=== PATIENT | female | born 1985 | race Caucasian/White ===

== ENCOUNTER 2019-07-21 16:46 | Emergency (ER) | payer MEDICAID ==
[~2019-07-21] VITALS: Ht 160 cm; Wt 63.3 kg
[~2019-07-21 16:46] MED LIST: DEXA4TAB PO; NICO-487 TD; PRED20TA PO
--- NOTE | 2019-07-21 17:08 | NUR ---
PT CAME IN CO OF SOB, CP, AND FEELING LIGHT HEADED. "I WAS GETTING LIGHT HEADED AND DIZZY AT WORK. ALSO WAS GETTING CP. SOMETIMES WHEN I GO ON A HIKE MY APPLE WATCH SAYS MY HR WTILL BE AT 170". EKG COMPELTED. PT RESTING IN GURNEY. HOOKED UP TO DEVOPS CONSULTANT AND PULSE OX. FAMILY HX OF DC
[2019-07-21 17:45] LABS: BASOPHILS # (AUTO) 0.03 x10^3/uL (0-0.1); BASOPHILS % (AUTO) 0 % (0-1); EOSINOPHILS # (AUTO) 0.08 x10^3/uL (0-0.4); EOSINOPHILS % (AUTO) 1 % (1-7); LYMPHOCYTES # (AUTO) 1.71 x10^3/uL (1-3.4); LYMPHOCYTES % (AUTO) 21 % (22-44); MD NO; MEAN CORPUSCULAR HEMOGLOBIN 27.6 pg (27.0-34.8); MEAN CORPUSCULAR HGB CONC 33.8 g/dL (32.4-35.8); MEAN CORPUSCULAR VOLUME 81.7 fL (80-100); MEAN PLATELET VOLUME 8.6 fL (7.4-10.4); MONOCYTES # (AUTO) 0.53 x10^3/uL (0.2-0.8); MONOCYTES % (AUTO) 6 % (2-9); NEUTROPHILS % (AUTO) 72 % (42-75); PLATELET COUNT 247 x10^3/uL (130-400); RED BLOOD COUNT 4.88 x10^6/uL (3.82-5.3); RED CELL DISTRIBUTION WIDTH 12.6 % (9.6-15.2)
[2019-07-21 17:55] LABS: ALBUMIN 3.7 g/dL (3.4-5.0); ANION GAP 6 mmol/L (5-15); CALCIUM 8.6 mg/dL (8.5-10.1); CHLORIDE 111 mmol/L (98-107); CREATININE 0.71 mg/dL (0.55-1.02)
[2019-07-21 17:59] LABS: TROPONIN I < 0.015 ng/mL (0.000-0.045)
[2019-07-21 18:06] VITALS: BP 165/110
--- NOTE | 2019-07-21 18:07 | NUR ---
WITH REASSESSMENT (POST CLONIDINE ADMIN) PATIENT REPORTS CHEST PAIN AND HEADACHE REMAIN /10. HOWEVER: 70, 165/110
== END 2019-07-21 19:02 | disposition home or self-care (01) ==
LOC: ED 17:15
DX: I10 Essential (primary) hypertension (principal); R07.89 Other chest pain; R51 Headache; R42 Dizziness and giddiness; R04.0 Epistaxis; R11.0 Nausea
CPT/HCPCS: 36415; 71045; 80048; 82040; 84484; 85025; 93005; 99285

== ENCOUNTER 2020-01-01 20:49 | Emergency (ER) | payer MEDICAID ==
[~2020-01-01] VITALS: Ht 160 cm; Wt 62.1 kg
[2020-01-01] MEDS ORDERED: AMOXICILLIN 250 MG/5 ML, ORAL SUSP PO ONE (21:30)
[2020-01-01] MEDS ORDERED: DEXAMETHASONE 4 MG TABLET PO ONE (21:30)
[2020-01-01] MEDS ORDERED: DEXAMETHASONE 4 MG TABLET ONE (21:35)
[2020-01-01] MEDS ORDERED: AMOXICILLIN 500 MG CAPSULE ONE (21:35)
--- NOTE | 2020-01-01 21:44 | NUR ---
Alert, answering questions appropriately. States increased fatigue x 2 weeks, worsening yesterday with associated JAY, body aches, chills, sore throat, cough productive of brown sputum. Voice sounds hoarse. Speaking in clear, full sentences. O2 remains high 90s RA. No s/sx acute respiratory distress. Denies chest pain, c/o intermittent SOB r/t cough. Pt has taken ibuprofen at home with minimal effect. Ambulates independently, steady gait
[2020-01-01 21:59] VITALS: BP 104/58
--- NOTE | 2020-01-01 22:01 | NUR ---
D/c instructions discussed with pt. Covid precautions discussed, verbalized understanding
== END 2020-01-01 22:02 | disposition home or self-care (01) ==
LOC: ED 21:54
DX: J02.0 Streptococcal pharyngitis (principal); R05 Cough; R50.9 Fever, unspecified; Z20.828 Contact with and (suspected) exposure to other viral communicable diseases; R00.0 Tachycardia, unspecified
CPT/HCPCS: 36415; 87635; 99283

== ENCOUNTER 2020-01-24 17:19 | Emergency (ER) | payer MEDICAID ==
[~2020-01-24] VITALS: Ht 160 cm; Wt 61.1 kg
[2020-01-24 17:23] VITALS: BP 160/116
[2020-01-24] MEDS ORDERED: MECLIZINE CHEWABLE 25 MG TAB PO ONE (17:30)
--- NOTE | 2020-01-24 17:36 | NUR ---
[employer]; PT TO ROOM FROM LOBBY
[2020-01-24] MEDS ORDERED: MECLIZINE CHEWABLE 25 MG TAB ONE (18:05)
[2020-01-24] MEDS ORDERED: ONDANSETRON ODT 4 MG ONE (18:20)
[2020-01-24] MEDS ORDERED: ACETAMINOPHEN 500 MG TABLET ONE (18:20)
[2020-01-24] MEDS ORDERED: KETOROLAC 30 MG/1 ML ONE (18:20)
[2020-01-24] MEDS ORDERED: ONDANSETRON ODT 4 MG PO ONE (18:30)
[2020-01-24] MEDS ORDERED: ACETAMINOPHEN 500 MG TABLET PO ONE (18:30)
[2020-01-24] MEDS ORDERED: KETOROLAC 30 MG/1 ML IM ONE (18:30)
== END 2020-01-24 20:46 | disposition home or self-care (01) ==
LOC: ED 19:29
DX: B34.9 Viral infection, unspecified (principal); Z20.828 Contact with and (suspected) exposure to other viral communicable diseases; G44.209 Tension-type headache, unspecified, not intractable; R07.89 Other chest pain; R06.02 Shortness of breath; R42 Dizziness and giddiness; R19.7 Diarrhea, unspecified; I10 Essential (primary) hypertension; Z87.891 Personal history of nicotine dependence
CPT/HCPCS: 36415; 71045; 87635; 93005; 96372; 99285; J1885; Q0162

== ENCOUNTER 2020-03-26 00:18 | Emergency (ER) | payer MEDICAID ==
[~2020-03-26] VITALS: Ht 160 cm; Wt 63.0 kg
[2020-03-26] MEDS ORDERED: ONDANSETRON ODT 4 MG PO ONE (01:00)
[2020-03-26 01:10] LABS: MICROSCOPIC AUTO
[2020-03-26 01:10] LABS: ALANINE AMINOTRANSFERASE 26 U/L (12-78); ALBUMIN 3.6 g/dL (3.4-5.0); ANION GAP 7 mmol/L (5-15); CALCIUM 7.7 mg/dL (8.5-10.1); CHLORIDE 109 mmol/L (98-107)
[2020-03-26 01:12] LABS: ALKALINE PHOSPHATASE 92 U/L (45-117); BILIRUBIN,TOTAL 0.5 mg/dL (0.2-1.0); TOTAL PROTEIN 7.2 g/dL (6.4-8.2)
[2020-03-26 01:14] LABS: BASOPHILS % (AUTO) 1 % (0-1); EOSINOPHILS % (AUTO) 2 % (1-7); LYMPHOCYTES % (AUTO) 25 % (22-44); MEAN CORPUSCULAR HEMOGLOBIN 28.4 pg (27.0-34.8); MEAN CORPUSCULAR HGB CONC 34.2 g/dL (32.4-35.8); MEAN PLATELET VOLUME 8.7 fL (7.4-10.4); MONOCYTES % (AUTO) 8 % (2-9); NEUTROPHILS % (AUTO) 64 % (42-75); PLATELET COUNT 223 x10^3/uL (130-400); RED CELL DISTRIBUTION WIDTH 12.8 % (9.6-15.2)
[2020-03-26 01:15] LABS: MD NO
[2020-03-26] MEDS ORDERED: ONDANSETRON ODT 4 MG ONE (01:27)
[2020-03-26 01:59] VITALS: BP 135/78
== END 2020-03-26 02:01 | disposition home or self-care (01) ==
LOC: ED 01:11
DX: K52.9 Noninfective gastroenteritis and colitis, unspecified (principal); R11.2 Nausea with vomiting, unspecified
CPT/HCPCS: 36415; 80053; 81001; 83690; 85025; 87086; 99283; Q0162

== ENCOUNTER 2020-06-10 21:53 | Emergency (ER) | payer MEDICAID ==
[~2020-06-10] VITALS: Ht 160 cm; Wt 63.7 kg
[~2020-06-10 21:53] MED LIST changes: -NICO-487 TD; +NICO-587 TD
[2020-06-10] MEDS ORDERED: ACETAMINOPHEN 325 MG TABLET ONE (22:27)
[2020-06-10] MEDS ORDERED: KETOROLAC 30 MG/1 ML ONE (22:27)
[2020-06-10] MEDS ORDERED: KETOROLAC 30 MG/1 ML IM ONE (22:30)
[2020-06-10] MEDS ORDERED: ACETAMINOPHEN 325 MG TABLET PO ONE (22:30)
[2020-06-10 22:37] VITALS: BP 116/79
== END 2020-06-10 23:01 | disposition home or self-care (01) ==
LOC: ED 22:30
DX: M77.11 Lateral epicondylitis, right elbow (principal); I10 Essential (primary) hypertension; Z87.891 Personal history of nicotine dependence
CPT/HCPCS: 96372; 99283; J1885

== ENCOUNTER 2020-09-29 20:52 | Emergency (ER) | payer MEDICAID ==
[~2020-09-29] VITALS: Ht 160 cm; Wt 59.8 kg
[2020-09-29 20:57] VITALS: BP 144/96
== END 2020-09-30 21:40 | disposition left against medical advice (07) ==
LOC: ED 21:34
DX: M25.532 Pain in left wrist (principal); Z53.21 Procedure and treatment not carried out due to patient leaving prior to being seen by health care provider